=== PATIENT | female | born 1950 | race American Indian/Alaskan Native ===

== ENCOUNTER 2016-06-11 05:10 | Emergency (ER) | payer SELFPAY ==
[~2016-06-11 05:10] MED LIST: ADRENALIN ONE; CORDARONE IV ONE; SODIUM BICARBONATE IV ONE; XYLOCAINE CARDIAC IV ONE
[2016-06-11] MEDS ORDERED: XYLOCAINE IV ONE (05:18)
[2016-06-11] MEDS ORDERED: D5W IV ONE (05:18)
--- NOTE | 2016-06-11 05:29 | Emergency Department Report ---
HPI - General Time Seen by Provider: 06/11/16 05:24 - HPI HPI: Room 20 The patient is a 65-year-old female was in with a chief complaint of cardiac arrest. Per EMS the patient's last known well time was approximately 15 minutes before EMS was called. The patient was found down unresponsive. EMS was called and arrived on scene 04:40 the find the patient pulseless and apneic and in asystole. The patient was originally intubated by EMS with the ET tube became dislodged just prior to arrival to the ED. Left lower extremity interosseous line was established by EMS. Upon arrival to the ED the patient was intubated by myself and ACLS protocols continued Location: Cardiovascular system Duration: [see above] Quality: Asystole Severity: Severe Modifying factors: [see above] Context: [see above] Mode of transportation: [not driving] ED Past Medical Hx - Past Medical History Hx Hypertension: Yes (EF 10-15%, recent cath neg per cardiology notes) Hx Congestive Heart Failure: Yes Hx Diabetes: Yes Hx Renal Disease: Yes (ARF) Additional medical history: Denied prior history of VTE - Surgical History Hx Breast Surgery: Yes (left breast cancer) - Family History Family history: no significant - Social History Smoking Status: Never Smoker - Medications Home Medications: Home Medications Medication Instructions Recorded Confirmed Last Taken Type Aspirin EC [Aspirin Enteric Coated 81 mg PO QDAY 11/17/15 05/13/16 04/11/16 History TAB] Carvedilol [Coreg] 3.125 mg PO BID 11/17/15 05/13/16 04/11/16 History Dicyclomine [Bentyl] 20 mg PO 4XD 11/17/15 05/13/16 04/11/16 History traMADol [Ultram 50 MG tab] 50 mg PO Q8HR PRN 11/17/15 05/13/16 04/11/16 History Cholestyramine [Cholestyramine 4 gm PO DAILY 01/22/16 05/13/16 04/11/16 History Resin] Furosemide 60 mg PO DAILY 01/22/16 05/13/16 04/11/16 History Megestrol [Megace] 4 tsp PO QDAY 01/22/16 05/13/16 04/11/16 History Pravastatin Sodium [Pravastatin] 20 mg PO DAILY 01/22/16 05/13/16 04/11/16 History hydrALAZINE 25 mg PO QID 04/12/16 05/13/16 04/11/16 History Insulin Degludec [Tresiba 55 unit SQ QHS 05/13/16 05/13/16 Unknown History Flextouch U-100] Metoclopramide [Reglan] 5 mg PO 4XD 05/13/16 05/13/16 Unknown History Metolazone 5 mg PO DAILY 05/13/16 05/13/16 Unknown History Pantoprazole [Protonix] 40 mg PO QDAY 05/13/16 05/13/16 Unknown History Potassium Chloride [K-Dur] 20 meq PO QDAY 05/13/16 05/13/16 Unknown History QUEtiapine [SEROquel] 50 mg PO QHS 05/13/16 05/13/16 Unknown History ED Review of Systems ROS: Stated complaint: CARDIAC ARREST Other details as noted in HPI Comment: Unobtainable due to pts medical conditions Physical Exam - Physical Exam Physical Exam: GENERAL: The patient is well-developed well-nourished female lying on stretcher receiving chest compressions unresponsive. [] HEENT: Normocephalic. Atraumatic. NECK: Trachea midline CHEST/LUNGS: Sounds bilaterally with bagging after intubation by myself. No spontaneous respirations HEART/CARDIOVASCULAR: PEA. No heart sounds ABDOMEN: Abdomen is soft SKIN: There is no diaphoresis. NEURO: GCS 3T MUSCULOSKELETAL: There is no evidence of acute injury. ED Medical Decision Making - Differential Diagnosis cardiac arrest Critical care attestation.: If time is entered above; I have spent that time in minutes in the direct care of this critically ill patient, excluding procedure time. ED Disposition Clinical Impression: Cardiac arrest Disposition: MEDICAL FACILITY Is pt being admited?: No Does the pt Need Aspirin: No Condition: Poor Time of Disposition: 05:29 (patient )
== END 2016-06-11 09:01 ==
LOC: EEVIPCON 05:10 → ED 05:10
DX: I46.9 Cardiac arrest, cause unspecified (principal); I10 Essential (primary) hypertension; E11.9 Type 2 diabetes mellitus without complications; I50.9 Heart failure, unspecified; N17.9 Acute kidney failure, unspecified; Z79.82 Long term (current) use of aspirin; Z79.4 Long term (current) use of insulin
CPT/HCPCS: 92950; 99285; J0171; J0282; J2001